=== PATIENT | female | born 1980 | race Hispanic/Latino ===

== ENCOUNTER 2018-09-02 22:54 | Emergency (ER) | payer SELFPAY ==
--- NOTE | 2018-09-02 23:49 | C.PDOC ---
History Of Present Illness 37 year old male presents to the ED for evaluation. Patient here with daughter who accidentally ingested Goo gone from an unlabeled bottle of Gripe water one hour [employer]. Patient reports she saw the orange color and squirted about 2 ml of the solution in her mouth. Patient also c/o some nausea. Patient denies fever, chest pain, SOB, chills, cough, congestion, rash, abdominal pain . Time Seen by Provider: 09/02/18 23:14 Chief Complaint (Nursing): Ingestion, Accidental History Per: Patient History/Exam Limitations: no limitations Onset/Duration Of Symptoms: Hrs (1) Current Symptoms Are (Timing): Still Present Recent travel outside of the [place]: No Additional History Per: Patient Past Medical History Reviewed: Historical Data, Nursing Documentation, Vital Signs Vital Signs: Last Vital Signs Temp 98.5 F 09/02/18 23:09 Pulse 101 H 09/02/18 23:09 Resp 20 09/02/18 23:09 BP Pulse Ox 97 09/02/18 23:09 Primary Care Provider: Non [facility] Provider, - Medical History PMH: Anxiety Surgical History: (x1 4 days ago) Family History: States: Unknown Family Hx - Social History Hx Alcohol Use: No Hx Substance Use: No - Immunization History Hx Tetanus Toxoid Vaccination: No Hx Influenza Vaccination: No Hx Pneumococcal Vaccination: No Review Of Systems Except As Marked, All Systems Reviewed And Found Negative. Constitutional: Negative for: Fever, Chills Cardiovascular: Negative for: Chest Pain Respiratory: Negative for: Shortness of Breath Gastrointestinal: Positive for: Nausea. Negative for: Vomiting, Abdominal Pain Skin: Negative for: Rash Neurological: Negative for: Weakness, Numbness, Headache, Dizziness Physical Exam - Physical Exam Appears: Non-toxic, No Acute Distress Skin: Normal Color, Warm, Dry, No Rash Head: Atraumatic, Normacephalic Eye(s): bilateral: Normal Inspection, PERRL, EOMI Oral Mucosa: Moist Neck: Normal ROM, Supple Chest: Symmetrical Cardiovascular: Rhythm Regular, No Friction Rub, No Murmur Respiratory: Normal Breath Sounds, No Rales, No Rhonchi, No Wheezing Gastrointestinal/Abdominal: Soft, No Tenderness, No Guarding, No Rebound Back: Normal Inspection, No CVA Tenderness, No Vertebral Tenderness Extremity: Normal ROM, No Tenderness, No Swelling Neurological/Psych: Oriented x3, Normal Speech, Normal Cognition, Normal Motor Gait: Steady ED Course And Treatment O2 Sat by Pulse Oximetry: 97 (ON RA) Pulse Ox Interpretation: Normal Medical Decision Making Medical Decision Making: Poison control was contacted, due to the small amount of Goo gone ingested there is nothing more than supportive care to be done at this time. On re-exam, the patient reports that she is asymptomatic. Lungs are CTA, heart is RRR, abdomen is soft, non-tender and tolerating PO well. Ambulatory in the ED with steady gait. Follow up with the medical doctor within 1-2 days. Return if worsened. Disposition - Disposition Referrals: [facility] [Outside] Disposition: HOME/ ROUTINE Disposition Time: 01:37 Condition: GOOD Additional Instructions: Follow up with the medical doctor within 1-2 days. Return if worsened. Instructions: Chemical Ingestion (DC) Forms: [facility] ([place]), Work Excuse - Clinical Impression Clinical Impression: Ingestion of corrosive chemical - PA / [employer] OPER[employer] / Resident Statement MD/DO has reviewed & agrees with the documentation as recorded. - Scribe Statement The provider has reviewed the documentation as recorded by the Scribe Wale Campos All medical record entries made by the Scribe were at my direction and personally dictated by me. I have reviewed the chart and agree that the record accurately reflects my personal performance of the history, physical exam, medical decision making, and the department course for this patient. I have also personally directed, reviewed, and agree with the discharge instructions and disposition.
[2018-09-03 01:40] VITALS: BP 118/82; PULSE 85; RESP 18; TEMP 98.4
[2018-09-03 03:02] VITALS: O2SAT 97
== END 2018-09-03 01:45 | disposition home or self-care (01) ==
LOC: C.ER 22:54
DX: T54.91XA Toxic effect of unspecified corrosive substance, accidental (unintentional), initial encounter (principal)